=== PATIENT | female | born 1970 | race Caucasian/White ===

== ENCOUNTER 2022-03-24 09:42 | Inpatient (IN) | payer MEDICAID ==
[~2022-03-24] VITALS: Ht 157.5 cm; Wt 85.5 kg
[~2022-03-24 09:42] MED LIST: BENZ1TAB7 PO; FLUO40CA10 PO; LORA1TAB PO; OMEG300C3 PO; PALI6TAB PO; QUET150T2 PO
[2022-03-24 11:09] LABS: BASOPHILS % (AUTO) 0.6 % (0-1); EOSINOPHILS # (AUTO) 0.1 X10'3 (0-0.9); EOSINOPHILS % (AUTO) 1.2 % (0-6); HEMATOCRIT 43.7 % (35.0-45.0); HEMOGLOBIN 14.9 g/dl (12.0-16.0); LYMPHOCYTES # (AUTO) 1.4 X10'3 (1.1-4.8); LYMPHOCYTES % (AUTO) 17.6 % (21-51); MEAN CORPUSCULAR HGB CONC 34.1 g/dL (33.0-36.5); MEAN PLATELET VOLUME 8.2 FL (7.4-10.4); MONOCYTES # (AUTO) 0.5 X10'3 (0-0.9); MONOCYTES % (AUTO) 6.1 % (2-12); NEUTROPHILS # (AUTO) 5.8 X10'3 (1.8-7.7); NEUTROPHILS % (AUTO) 74.5 % (42-75); PLATELET COUNT 259 X10'3 (140-440); RED CELL DISTRIBUTION WIDTH 13.3 % (11.5-14.5); WHITE BLOOD COUNT 7.8 X10'3 (4.5-11.0)
[2022-03-24 11:22] LABS: ALANINE AMINOTRANSFERASE 28 U/L (12-78); ALBUMIN 3.6 G/DL (3.4-5.0); ALBUMIN/GLOBULIN RATIO 0.9 (1.1-1.5); ALKALINE PHOSPHATASE 67 IU/L (46-116); ANION GAP 11 (8-16); ASPARTATE AMINO TRANSFERASE 17 U/L (10-37); BILIRUBIN,TOTAL 0.6 MG/DL (0.1-1.0); BLOOD UREA NITROGEN 11 MG/DL (7-18); BUN/CREATININE RATIO 13.3 (6.6-38.0); CALCIUM 8.8 MG/DL (8.5-10.1); CHLORIDE 106 MMOL/L (99-107); CREATININE 0.83 MG/DL (0.40-0.90); GLUCOSE 96 MG/DL (70-104); POTASSIUM 3.9 MMOL/L (3.5-5.1); SODIUM 141 MMOL/L (135-145); TOTAL PROTEIN 7.7 G/DL (6.4-8.2); eGFR 73 ML/MIN
[2022-03-24 11:27] LABS: ETHANOL < 0.010 GM/DL (0.0-0.010)
[2022-03-24] MEDS ORDERED: LIDOcaine 1% W/epiNEPHrine 1:200,000 10ml vial IJ ONE (12:10)
[2022-03-24] MEDS ORDERED: LIDOcaine 1% W/epiNEPHrine 1:100,000 20ml vial SQ ONE (12:15)
--- NOTE | 2022-03-24 12:43 | NUR ---
Tech irrigating pt's wound at bedside. Pt provided water.
[2022-03-24 14:19] LABS: CLARITY,URINE SLIGHTLY CLOUDY (Clear); COLOR,URINE YELLOW (Yellow); GLUCOSE, URINE NEGATIVE (Neg); KETONES,URINE >=80 mg/dl (Neg); LEUKOCYTE ESTERASE ,URINE NEGATIVE (Neg); NITRITES, URINE NEGATIVE (Neg); OCCULT BLOOD,URINE NEGATIVE (Neg); PROTEIN,URINE NEGATIVE (Neg); URINE HCG NEGATIVE (NEG)
[2022-03-24 14:24] LABS: UA COLLECTION TYPE CLN CATCH MIDSTREAM; URINE AMPHETAMINE SCREEN NEGATIVE (Neg); URINE BARBITUATE SCREEN NEGATIVE (Neg); URINE BENZODIAZEPINES SCREEN NEGATIVE (Neg); URINE CANNABINOID SCREEN POSITIVE (Neg); URINE COCAINE SCREEN NEGATIVE (Neg); URINE METHADONE SCREEN NEGATIVE (Neg); URINE OPIATE SCREEN NEGATIVE (Neg); URINE PHENCYCLIDINE SCREEN NEGATIVE (Neg)
[2022-03-24 14:25] LABS: MUCUS STRANDS MANY /LPF (Neg); SQUAMOUS EPITHELIAL CELL,UR MANY /LPF (FEW)
[2022-03-24 14:27] LABS: BACTERIA,URINE FEW /HPF (Neg); RBC,URINE NONE SEEN /HPF (0-2); WBC,URINE 0-4 /HPF (0-4); YEAST FEW /HPF (NEGATIVE)
--- NOTE | 2022-03-24 15:59 | NUR ---
packet faxed to [facility] at [phone] 03/24/22
--- NOTE | 2022-03-24 16:13 | NUR ---
Pts son here requesting that upon DC that pt be released to him. Pt left contact number. Nirav Alvarado:
[2022-03-24] MEDS ORDERED: ESZO3TAB44 PO (20:00)
[2022-03-24] MEDS ORDERED: PALI6TAB6 PO (20:00)
[2022-03-24] MEDS ORDERED: BUSP10TA3 PO (20:00)
[2022-03-24] MEDS ORDERED: CHOL20002 PO (20:00)
[2022-03-24] MEDS ORDERED: BENZ1TAB7 PO (20:00)
[2022-03-24] MEDS ORDERED: ESCI5TAB17 PO (20:00)
[2022-03-24] MEDS: zolpidem 5mg tablet PO PRN (21:08)
[2022-03-24] MEDS: benztropine 1mg tablet PO SCH (21:19)
[2022-03-24] MEDS: busPIRone 5mg tablet PO SCH (21:20)
[2022-03-24] MEDS: PALIPERIDONE 3 MG TAB.ER.24 PO SCH (21:20)
[2022-03-24] MEDS: LORazepam 1 MG tablet PO SCH (21:20)
[2022-03-24] MEDS ORDERED: acetaminophen 325mg tablet PO ONE (22:15)
--- NOTE | 2022-03-24 23:16 | NUR ---
PT. SEEN ITCHING AND PICKING AT WRIST WOUND. ALSO COMPLAINS OF PAIN. CHANGED DRESSING, USED GAUZE AND A WRIST SPLINT TO IMMOBILIZE WRIST AND STOP PICKING/ PAIN.
--- NOTE | 2022-03-25 06:40 | NUR ---
Received patient from ED for Transfer to Bed 22. Received report from MANDO Ramirez, ED. Patient assisted to bed 22 and is resting at this time.
[2022-03-25] MEDS: busPIRone 5mg tablet PO SCH ×2 (08:08→20:06)
[2022-03-25] MEDS: OMEGA-3/DHA/EPA/FISH OIL 1 EACH CAPSULE.DR PO SCH (08:09)
[2022-03-25] MEDS: cholecalciferol (vitamin D3) 1,000 unit (25mcg) tablet PO SCH (08:09)
[2022-03-25] MEDS: ESCITALOPRAM OXALATE 5 MG TABLET PO SCH (08:09)
--- NOTE | 2022-03-25 08:09 | NUR ---
Patient ate breakfast at her bedside. Ate without difficulty using left hand that was in splint. Took all po medications. Patient walking around the department. Atarax given at 0810 for c/o anxiety. Patient eloped out of Bed #22 at 0845. Patient left the ED and was located on the Security Camera on 2nd floor near [facility]. Security and staff members attempting to locate her. Patient was then located on Security Camera in the elevator by the [place] [facility]. Patient was located by RIGOBERTO Shelley and returned back to [facility]. gen Shelley at patient's bedside at this time for line of site.
[2022-03-25] MEDS: hydrOXYzine 25 MG tablet PO PRN (08:10)
[2022-03-25] MEDS ORDERED: acetaminophen 325mg tablet PO PRN ×3 (08:30→14:05)
[2022-03-25] MEDS: benztropine 1mg tablet PO SCH ×2 (08:59→20:06)
--- NOTE | 2022-03-25 13:55 | NUR ---
Staff member here from [facility] to pick this patient up and transport to [facility]. Security here on stand bye. Patient transferred self to a w/c and taken upstairs by RIGOBERTO Frausto at 1355 with Security with patient/staff member.
[2022-03-25] MEDS ORDERED: mag hydrox/Alum hydrox/simeth 30ml oral suspension PO PRN (14:05)
[2022-03-25] MEDS ORDERED: magnesium hydroxide 30ml (MOM) UD suspension PO PRN (14:05)
[2022-03-25 17:16] VITALS: BP 148/91
--- NOTE | 2022-03-25 17:57 | NUR ---
Nursing Admission Note Pt admitted to [facility] at 1350, brought up from [facility]. Pt calm and pleasant and appears depressed. Pt skin check complete and lacerations on wrist with stiches noted. Pt showered and given unit orientation. Pt admitted due to suicide attept of cutting wrists. Pt is seen by [facility] and has been off of most meds for two months. Pt is homeless now and reports leaving her home due to spouse using drugs with others. Pt reports it's been very rough being homeless. Pt +SI. Pt has abnormal mouth and toungue movements which may be R/T medication changes.
[2022-03-25 20:00] VITALS: BP 126/88
[2022-03-25] MEDS: PALIPERIDONE 3 MG TAB.ER.24 PO SCH (20:06)
[2022-03-25] MEDS: LORazepam 1 MG tablet PO SCH (20:06)
--- NOTE | 2022-03-25 23:38 | NUR ---
Nursing Progress Note: Esme Legal hold: 5150 Client on involuntary status for GD Report received from RN with use of SBAR Why are they here: Pt admitted due to suicide attempt of cutting wrists. Pt is seen by [facility] and has been off of most meds for two months. Pt is homeless now and reports leaving her home due to spouse using drugs with others. Pt reports it's been very rough being homeless. Pt +SI. Pt has abnormal mouth and tongue movements which may be R/T medication changes. Assessment What has happened this shift: Received pt pacing the hallway. Pt presents as calm and cooperative. She currently denies SI/+AH states the voices told her to cut her wrist. Pt asking about her medications and what time she would be getting them. Participates in snacks and took all HS medications without issue and retired to bed. S/I, H/I: Denies A/VH: +AH states her voices told her to cut her wrist Sleep: ADL's: Independent Group :NA Were meds taken: Yes Any med S/E: None Mental Status Exam Appearance: Disheveled in green scrubs Eye contact: fair Behavior: Cooperative Speech: Pt has abnormal mouth and tongue movements which may be R/T medication changes. Mood: Flat Affect: Flat Thought process: Thought Content: meeting own needs Cognition: A&O X4 Insight: poor Judgment: poor Interventions PRN's used: None Therapeutic interventions: Maintained a safe and supportive environment, ensured contract for safety, provided clear and simple instruction, provided active listening and positive encouragement, encouraged participation on the unit, and maintained LOS precautions. Restraints/seclusion/emergency medication: N/A Justification of Continued Inpatient Treatment: NILESH Pratt, pt. continues to require a safe and supportive environment and medication adjustments.
[2022-03-26] MEDS: hydrOXYzine 25 MG tablet PO PRN (01:24)
--- NOTE | 2022-03-26 01:26 | NUR ---
Sleeping note: Pt up requesting a snack and juice. Pt requested ativan, 50MG of atarax given.
[2022-03-26 07:32] LABS: CHOL/HDL RATIO 3.3 (0.00-4.99); CHOLESTEROL 129 MG/DL (0-200); HDL CHOLESTEROL 39 MG/DL (35-60); LDL CHOLESTEROL 73 MG/DL (50-100); TRIGLYCERIDES 101 MG/DL (20-135)
[2022-03-26 07:48] LABS: HEMOGLOBIN A1C 5.6 % (4.5-6.2)
[2022-03-26 08:00] VITALS: BP 141/84
[2022-03-26] MEDS: nicotine 21mg patch - 24 hr TD SCH (08:00)
[2022-03-26] MEDS: benztropine 1mg tablet PO SCH ×2 (08:01→20:08)
[2022-03-26] MEDS: cholecalciferol (vitamin D3) 1,000 unit (25mcg) tablet PO SCH (08:01)
[2022-03-26] MEDS: ESCITALOPRAM OXALATE 5 MG TABLET PO SCH (08:01)
[2022-03-26] MEDS: busPIRone 5mg tablet PO SCH ×2 (08:01→20:08)
[2022-03-26] MEDS: OMEGA-3/DHA/EPA/FISH OIL 1 EACH CAPSULE.DR PO SCH (08:01)
--- NOTE | 2022-03-26 10:13 | NUR ---
Pt. attended group today. At the beginning of group we talked about Core Beliefs and they each identified one negative. We worked toward finding evidence to contradict this belief. In the second half of the group we did an Art Expressions where they what was inside of their hearts. They were to visualize in colors and shapes and then color their heart in. Then they completed a Sentence Completion about what their heart thinks and feels. Pt. engaged in the group appropriately. Her demeanor was calm, compliant and pleasant to work with. She spoke minimally with short concise answers when asked a question. She colored her heart and did the written activity. She shared these with the group. Guillermina Samson, SUPERINTENDENT OPERATIONS DIVISION
--- NOTE | 2022-03-26 17:27 | NUR ---
Nursing Progress Note: Esme Legal hold: 5150 Client on involuntary status for GD Report received from MANDO Candelaria with use of SBAR Why are they here: Pt admitted due to suicide attempt of cutting wrists. Pt is seen by [facility] and has been off of most meds for two months. Pt is homeless now and reports leaving her home due to spouse using drugs with others. Pt reports it's been very rough being homeless. Pt +SI. Pt has abnormal mouth and tongue movements which may be R/T medication changes. Assessment What has happened this shift: Patient received sleeping in bed at change of shift. She joined with peers in the group room for breakfast this morning. Patient was receptive to scheduled medication. She is noted to be pleasant, reserved, and cooperative with care. Patient was noted sitting in the group room socializing with peers for part of the morning. She retreated back to her room for 1:1 assessment, lungs CTA. Patient denies SI/HI, AH or VH. Does not appear to be responding to internal stimuli. She was observed participating in group therapy today, noted interacting and engaging appropriately. Patient continues to present with abnormal mouth and tongue movements, MD aware. Patient observed lying down in her room quietly resting. She endorsed to this engineering technical writer that she is feeling depressed about being in here. Patient provided with ideas for diversional activities which she declined to partake in. She was observed to be isolative and reserved throughout the day. Noted only responding to direct questions when asked. She was observed napping intermittently throughout the shift. Patient joined for snack and meal times in the group room with peers. S/I, H/I: Denies A/VH: Denies. Does not appear to be responding to IS. Sleep: Pt slept 7.5 hours last night per NOC shift. Napped intermittently on this shift. ADL's: Independent Group: Yes Were meds taken: Yes Any med S/E: None observed or reported Mental Status Exam Appearance: Disheveled in green scrubs, black wrist splint on left wrist Eye contact: Fair Behavior: Cooperative, pleasant, reserved Speech: Pt has abnormal mouth and tongue movements which may be R/T medication changes. Mood: Flat, feeling depressed Affect: Congruent with mood Thought process: Linear Thought Content: Meeting needs, feeling depressed Cognition: A&O X4 Insight: Poor Judgment: Poor Interventions PRN's used: None Therapeutic interventions: Maintained a safe and supportive environment, ensured contract for safety, provided clear and simple instruction, provided active listening and positive encouragement, encouraged participation on the unit, and maintained Q15 min safety checks. Restraints/seclusion/emergency medication: N/A Justification of Continued Inpatient Treatment: Patient continues to require a safe and supportive environment and medication adjustments/monitoring.
[2022-03-26 19:46] VITALS: BP 109/71
[2022-03-26] MEDS: PALIPERIDONE 3 MG TAB.ER.24 PO SCH (20:08)
[2022-03-26] MEDS: LORazepam 1 MG tablet PO SCH (20:08)
--- NOTE | 2022-03-27 01:26 | NUR ---
Nursing Progress Note: Esme Legal hold: 5150 Client on involuntary status for GD Report received from Viry GILMORE with use of SBAR Why are they here: Pt admitted due to suicide attempt of cutting wrists. Pt is seen by [facility] and has been off of most meds for two months. Pt is homeless now and reports leaving her home due to spouse using drugs with others. Pt reports it's been very rough being homeless. Pt +SI. Pt has abnormal mouth and tongue movements which may be R/T medication changes. Assessment What has happened this shift: Patient received sleeping lying in bed resting. Pt stated she was concerned that she was going to get locked up somewhere far, far away. When questioned why she felt that way she could not give this personal lines underwriter a reason. She stated that she wanted to go live with her son. She is noted to be pleasant, reserved, and cooperative with care. Pt up to the community room for snacks and took all HS medications without issue then went to her room for bedtime. S/I, H/I: Denies A/VH: Denies. Does not appear to be responding to IS. Sleep: ADL's: Independent Group: Yes Were meds taken: Yes Any med S/E: None observed or reported Mental Status Exam Appearance: Disheveled in green scrubs, black wrist splint on left wrist Eye contact: Fair Behavior: Cooperative, pleasant, reserved Speech: Pt has abnormal mouth and tongue movements which may be R/T medication changes. Mood: Flat, feeling depressed Affect: Congruent with mood Thought process: Linear Thought Content: Meeting needs, feeling depressed Cognition: A&O X4 Insight: Poor Judgment: Poor Interventions PRN's used: None Therapeutic interventions: Maintained a safe and supportive environment, ensured contract for safety, provided clear and simple instruction, provided active listening and positive encouragement, encouraged participation on the unit, and maintained Q15 min safety checks. Restraints/seclusion/emergency medication: N/A Justification of Continued Inpatient Treatment: Patient continues to require a safe and supportive environment and medication adjustments/monitoring.
[2022-03-27 07:33] VITALS: BP 151/94
[2022-03-27] MEDS: nicotine 21mg patch - 24 hr TD SCH (08:00)
[2022-03-27] MEDS: OMEGA-3/DHA/EPA/FISH OIL 1 EACH CAPSULE.DR PO SCH (08:06)
[2022-03-27] MEDS: ESCITALOPRAM OXALATE 5 MG TABLET PO SCH (08:06)
[2022-03-27] MEDS: benztropine 1mg tablet PO SCH ×2 (08:06→20:11)
[2022-03-27] MEDS: busPIRone 5mg tablet PO SCH ×2 (08:06→20:11)
[2022-03-27] MEDS: cholecalciferol (vitamin D3) 1,000 unit (25mcg) tablet PO SCH (08:06)
--- NOTE | 2022-03-27 16:58 | NUR ---
Nursing Progress Note: Esme Legal hold: 5150 Client on involuntary status for GD Report received from MANDO Candelaria with use of SBAR Why are they here: Pt admitted due to suicide attempt of cutting wrists. Pt is seen by [facility] and has been off of most meds for two months. Pt is homeless now and reports leaving her home due to spouse using drugs with others. Pt reports it's been very rough being homeless. Pt +SI. Pt has abnormal mouth and tongue movements which may be R/T medication changes. Assessment What has happened this shift: Patient received sleeping in her room at shift change. She was receptive to scheduled medication. Patient continues to present with abnormal mouth and tongue movements, MD aware. Patient observed sitting with another peer in the group room while eating breakfast. She continues to present as pleasant, reserved, and cooperative with care. She isolated back to her room after breakfast, noted lying down in bed. Patient endorsed that she is feeling depressed about having to leave soon and she doesnt know where she is going to go. Patient endorsed that she wishes to live with her son but doesnt know if that is an option. She denies SI/HI, AH or VH. Does not appear to be responding to internal stimuli. Patient endorsed that she came here because she was suicidal. Patient endorsed that she does not want to hurt herself and is no longer having suicidal thoughts. She was noted napping intermittently throughout the shift. Patient was reserved and isolative to her room throughout the day. She joined for snack and meal times in the group room with peers. S/I, H/I: Denies A/VH: Denies. Does not appear to be responding to IS. Sleep: Pt slept 8.5 hours last night per NOC shift. Napped intermittently on this shift. ADL's: Independent Group: N/A Were meds taken: Yes Any med S/E: None observed or reported Mental Status Exam Appearance: Disheveled from lying in bed. Wearing green unit scrubs, black wrist splint on left wrist Eye contact: Fair Behavior: Cooperative, pleasant, reserved Speech: Pt has abnormal mouth and tongue movements which may be R/T medication changes. Mood: Flat, feeling depressed Affect: Congruent with mood Thought process: Linear Thought Content: Meeting needs. Feeling depressed and worried about discharge. Cognition: A&O X4 Insight: Poor Judgment: Poor Interventions PRN's used: None Therapeutic interventions: Maintained a safe and supportive environment, ensured contract for safety, provided clear and simple instruction, provided active listening and positive encouragement, encouraged participation on the unit, and maintained Q15 min safety checks. Restraints/seclusion/emergency medication: N/A Justification of Continued Inpatient Treatment: Patient continues to require a safe and supportive environment and medication adjustments/monitoring.
[2022-03-27 19:00] VITALS: BP 126/57
[2022-03-27] MEDS: hydrOXYzine 25 MG tablet PO PRN ×2 (19:06→19:17)
[2022-03-27] MEDS: LORazepam 1 MG tablet PO SCH (20:11)
[2022-03-27] MEDS ORDERED: PALIPERIDONE 3 MG TAB.ER.24 PO SCH (21:00)
[2022-03-28] MEDS: zolpidem 5mg tablet PO PRN (00:12)
--- NOTE | 2022-03-28 01:00 | NUR ---
Sleeping note: Pt up at around midnight, 5MG of ambien given.
--- NOTE | 2022-03-28 01:15 | NUR ---
Nursing Progress Note: Esme Legal hold: 5150 Client on involuntary status for GD Report received from Padma GILMORE with use of SBAR Why are they here: Pt admitted due to suicide attempt of cutting wrists. Pt is seen by [facility] and has been off of most meds for two months. Pt is homeless now and reports leaving her home due to spouse using drugs with others. Pt reports it's been very rough being homeless. Pt +SI. Pt has abnormal mouth and tongue movements which may be R/T medication changes. Assessment What has happened this shift: Patient received lying in bed resting. Pt stated she feels very depressed 8/10 about leaving soon and doesnt know where is going to go. Pt requested something for anxiety, received 50MG of atarax. Denies SI/HI and VH. Does not appear to be responding to internal stimuli. Patient continues to present with abnormal mouth and tongue movements, MD aware. Pt participates in the community room for snacks and took all HS medications without issue. Pt retired to bed shortly after med pass. Therapeutic interventions: Maintained a safe and supportive environment, ensured contract for safety, provided clear and simple instruction, provided active listening and positive encouragement, encouraged participation on the unit, and maintained Q15 min safety checks. Restraints/seclusion/emergency medication: N/A Justification of Continued Inpatient Treatment: Patient continues to require a safe and supportive environment and medication adjustments/monitoring.
[2022-03-28] MEDS: nicotine 21mg patch - 24 hr TD SCH (08:00)
[2022-03-28] MEDS: cholecalciferol (vitamin D3) 1,000 unit (25mcg) tablet PO SCH (08:04)
[2022-03-28] MEDS: busPIRone 5mg tablet PO SCH (08:04)
[2022-03-28] MEDS: ESCITALOPRAM OXALATE 5 MG TABLET PO SCH (08:04)
[2022-03-28] MEDS: OMEGA-3/DHA/EPA/FISH OIL 1 EACH CAPSULE.DR PO SCH (08:04)
[2022-03-28] MEDS: benztropine 1mg tablet PO SCH (08:04)
[2022-03-28] MEDS ORDERED: ESCI5TAB PO (08:05)
[2022-03-28] MEDS ORDERED: BENZ1TAB90 PO (08:05)
[2022-03-28] MEDS ORDERED: BUSP5TAB26 PO (08:05)
[2022-03-28] MEDS ORDERED: PALI3TAB5 PO (08:05)
[2022-03-28] MEDS ORDERED: NICO-687 TD (08:05)
[2022-03-28 08:58] VITALS: BP 130/82
--- NOTE | 2022-03-28 09:38 | NUR ---
Initial: Pt admit for depression with SI, currently with a laceration to left wrist which is sutured per EMR. Pt on a regular diet and eating well with mostly 75-100% PO intake of meals and is participating in snacks per panama hat hydraulic press operator. Overall pt meeting estimated nutrient needs. [facility] 03/27. No nutrition intervention implemented at this time. Will continue to follow. Recommendations: 1) Continue regular diet 2) Bowel care PRN 3) Weekly scaled weights Addendum: 03/28/22 at [address] Amended: Links added.
== END 2022-03-28 12:00 | disposition home or self-care (01) | DRG 751 ==
LOC: ER 09:43 → ED HOLD 03-25 11:45 → ADULT MH 03-25 13:52
PROVIDERS: ADMIT Psychiatry & Neurology Psychiatry; ATTEND Psychiatry & Neurology Psychiatry
PROC: 0HQEXZZ Repair Left Lower Arm Skin, External Approach (ICD-10-PCS; principal; 2022-03-24)
DX: F33.2 Major depressive disorder, recurrent severe without psychotic features (principal); F15.90 Other stimulant use, unspecified, uncomplicated; S61.512A Laceration without foreign body of left wrist, initial encounter; T14.91XA Suicide attempt, initial encounter; Z20.822 Contact with and (suspected) exposure to COVID-19; F20.9 Schizophrenia, unspecified; G24.01 Drug induced subacute dyskinesia; X78.9XXA Intentional self-harm by unspecified sharp object, initial encounter; Z59.00 Homelessness unspecified; Y92.89 Other specified places as the place of occurrence of the external cause; Z98.891 History of uterine scar from previous surgery
CPT/HCPCS: 36415; 80053; 80061; 80305; 80320; 81001; 81025; 83036; 84443; 85025; 87081; 87635; 99285; C9803; Q0177

== ENCOUNTER 2022-04-18 14:52 | Inpatient (IN) | payer MEDICAID ==
[~2022-04-18] VITALS: Ht 154.9 cm; Wt 87.5 kg
[~2022-04-18 14:52] MED LIST changes: -BENZ1TAB7 PO; +BENZ1TAB90 PO; +BUSP5TAB26 PO; +CHOL20002 PO; +ESCI5TAB PO; -FLUO40CA10 PO; +NICO-687 TD; +PALI3TAB5 PO; -PALI6TAB PO; -QUET150T2 PO; +rocuronium 10mg/ml inj IV ONE
[2022-04-18 15:10] VITALS: BP 146/98
[2022-04-18] MEDS ORDERED: fentaNYL/PF 50MCG/1 ML 2ML syringe IV PRN (15:10)
[2022-04-18] MEDS ORDERED: rocuronium 10mg/ml inj IV ONE (15:10)
[2022-04-18] MEDS ORDERED: normal saline 1000ml 1,000 ML IV ONE (15:10)
[2022-04-18] MEDS ORDERED: etomidate 2mg/ml inj. IV ONE (15:10)
[2022-04-18] MEDS ORDERED: pantoprazole IV 80 MG in normal saline 100ml IV soln 100 ML IV ONE (15:10)
[2022-04-18] MEDS ORDERED: FENTANYL-0.9 % NACL/PF 100 ML IV SCH (15:10)
[2022-04-18] MEDS ORDERED: midazolam 100mg in NS 100ml 100 ML IV PRN (15:10)
[2022-04-18] MEDS ORDERED: magnesium 2GM in 50ml NS 50 ML IV ONE (15:20)
--- NOTE | 2022-04-18 15:21 | NUR ---
POISON CONTROL CALLED FOR OD OF KLONOPIN 0.5MG, 90 TABLETS. LAST FILLED ON 04/09/22 PT WILL HAVE TECHNICAL EDITOR DEPRESSION RECOMMENDATIONS: INTUBATION LABS: CBC, CMP, ASA/TYLENOL LEVELS, DRUG SCREEN AND CK TREAT SUPPORTIVELY, NO REVERSALS OR ANTIDOTES RECOMMENDED AT THIS TIME. DR PEGUERO AND PT RN NOTIFIED
[2022-04-18 15:38] LABS: URINE HCG NEGATIVE (NEG)
[2022-04-18 15:47] LABS: BASOPHILS % (AUTO) 0.6 % (0-1); EOSINOPHILS # (AUTO) 0.2 X10'3 (0-0.9); EOSINOPHILS % (AUTO) 3.1 % (0-6); HEMATOCRIT 32.5 % (35.0-45.0); HEMOGLOBIN 10.6 g/dl (12.0-16.0); LYMPHOCYTES # (AUTO) 1.7 X10'3 (1.1-4.8); LYMPHOCYTES % (AUTO) 28.7 % (21-51); MEAN CORPUSCULAR HGB CONC 32.7 g/dL (33.0-36.5); MEAN CORPUSCULAR VOLUME 91.7 FL (78-98); MEAN PLATELET VOLUME 7.7 FL (7.4-10.4); MONOCYTES # (AUTO) 0.4 X10'3 (0-0.9); MONOCYTES % (AUTO) 6.5 % (2-12); NEUTROPHILS # (AUTO) 3.7 X10'3 (1.8-7.7); NEUTROPHILS % (AUTO) 61.1 % (42-75); PLATELET COUNT 227 X10'3 (140-440); RED BLOOD COUNT 3.54 X10'6 (4.20-5.60); RED CELL DISTRIBUTION WIDTH 13.1 % (11.5-14.5)
[2022-04-18 15:58] LABS: CLARITY,URINE CLEAR (Clear); COLOR,URINE YELLOW (Yellow); GLUCOSE, URINE NEGATIVE (Neg); KETONES,URINE NEGATIVE (Neg); LEUKOCYTE ESTERASE ,URINE NEGATIVE (Neg); NITRITES, URINE NEGATIVE (Neg); OCCULT BLOOD,URINE TRACE-INTACT (Neg); PROTEIN,URINE NEGATIVE (Neg); UROBILINOGEN,URINE 0.2 E.U/dL (0.2-1.0)
[2022-04-18 16:01] LABS: UA COLLECTION TYPE FOLEY CATH
[2022-04-18 16:03] LABS: MUCUS STRANDS FEW /LPF (Neg); RBC,URINE 0-2 /HPF (0-2); SQUAMOUS EPITHELIAL CELL,UR MODERATE /LPF (FEW); WBC,URINE 0-4 /HPF (0-4)
[2022-04-18 16:04] LABS: BACTERIA,URINE 1+ /HPF (Neg)
[2022-04-18 16:07] LABS: ALANINE AMINOTRANSFERASE 6 U/L (12-78); ALBUMIN 1.9 G/DL (3.4-5.0); ALBUMIN/GLOBULIN RATIO 0.8 (1.1-1.5); ALKALINE PHOSPHATASE 46 IU/L (46-116); ASPARTATE AMINO TRANSFERASE 7 U/L (10-37); BILIRUBIN,TOTAL 0.2 MG/DL (0.1-1.0); BLOOD UREA NITROGEN 7 MG/DL (7-18); BUN/CREATININE RATIO 14.3 (6.6-38.0); CREATINE KINASE 24 U/L (26-192); CREATININE 0.49 MG/DL (0.40-0.90); GLUCOSE 77 MG/DL (70-104); MAGNESIUM 1.3 MG/DL (1.5-2.4); TOTAL CARBON DIOXIDE 21.4 MMOL/L (24-32); TOTAL PROTEIN 4.3 G/DL (6.4-8.2); eGFR > 90 ML/MIN
[2022-04-18 16:15] LABS: ANION GAP 8 (8-16); CHLORIDE 117 MMOL/L (99-107); SODIUM 146 MMOL/L (135-145)
[2022-04-18 16:17] LABS: ETHANOL < 0.010 GM/DL (0.0-0.010)
[2022-04-18 16:18] LABS: URINE AMPHETAMINE SCREEN NEGATIVE (Neg); URINE BARBITUATE SCREEN NEGATIVE (Neg); URINE BENZODIAZEPINES SCREEN NEGATIVE (Neg); URINE CANNABINOID SCREEN POSITIVE (Neg); URINE COCAINE SCREEN NEGATIVE (Neg); URINE METHADONE SCREEN NEGATIVE (Neg); URINE OPIATE SCREEN NEGATIVE (Neg); URINE PHENCYCLIDINE SCREEN NEGATIVE (Neg)
[2022-04-18 16:20] LABS: CALCIUM 5.5 MG/DL (8.5-10.1); POTASSIUM 2.7 MMOL/L (3.5-5.1)
[2022-04-18 16:27] LABS: ABG BASE EXCESS -1.8 mmol/L (-2.0-2.0); ABG HCO3 22.6 mmol/L (22.0-26.0); ABG OXYGEN SATURATION 99.3 % (94-97); ABG PCO2 (T) 37.3 mmHg (32.0-45.0); ABG PO2 (T) 452.8 mmHg (75.0-100.0); ALLEN'S TEST POSITIVE; FCOHb 0.3 % (0.0-3.9); FMetHb 0.1 % (0.0-1.5); FO2Hb 98.9 % (94-97); PATIENT TEMPERATURE 36.7; PEEP 5 cm H2O; RESPIRATORY RATE 18 b/min; TIDAL VOLUME 460 mL; TOTAL HEMOGLOBIN 14.8 G/dl (12.0-16.0)
[2022-04-18] MEDS ORDERED: potassium Cl 10 mEq/100mL bag IV ONE (16:30)
[2022-04-18] MEDS ORDERED: calcium gluconate inj. 2 GM in normal saline 100ml IV soln 100 ML IV ONE (16:35)
--- NOTE | 2022-04-18 16:49 | NUR ---
PT'S DAUGHTER TURNER CALLED FOR STATUS UPDATE. INFORMED THAT I COULD NOT GIVE INFORMATION OVER THE PHONE AT THIS TIME. DAUGHTER STATES THAT SHE HAS A POWER OF REGIONAL SAFETY MANAGER FOR HEALTH CARE AND SHE WILL BRING A COPY OF THE DOCUMANT FOR PT'S CHART. DAUGHTER WAS INFORMED THAT HER BROTHER WAS HERE AND AN UPDATE WAS GIVEN TO HIM AND SHE CAN CONTACT HIM NEEDED. DAUGHTER REQUESTED THAT PT NOT BE RELEASED TO HER BROTHER AND TO CALL HER WITH ANY UPDATES AND DISCHARGE INFORMATION. DAUGHTERS PHONE # IS IN PT'S RECORD NOK. Addendum: 04/18/22 at 1812 by ADALID DAUGHTER, TURNER HAIDER; PHONE # [phone]
[2022-04-18 16:55] LABS: PHOSPHORUS 3.5 MG/DL (2.3-4.5)
--- NOTE | 2022-04-18 17:30 | NUR ---
OH PEGUERO AT BEDSIDE PLACING CENTRAL LINE. INCREASE IN INFUSION RATE OF SEDATION WELL 4MG BOLUS OF VERSED PERFORMED PER MD REQUEST.
[2022-04-18] MEDS: pantoprazole 40MG/NS 100ML BAG 100 ML IV SCH ×2 (17:53→18:12)
[2022-04-18 18:10] LABS: RED BLOOD COUNT 4.44 X10'6 (4.20-5.60); RETICULOCYTE % (AUTO) 0.8 % (0.5-1.5)
[2022-04-18] MEDS ORDERED: POTASSIUM BICARB 20meq eff tab 20 MEQ TABLET.EFF PO PRN ×2 (18:10)
[2022-04-18] MEDS ORDERED: acetaminophen 325mg tablet PO PRN ×2 (18:10)
[2022-04-18] MEDS ORDERED: morphine 4 MG/ML inj SYRINge IV PRN (18:10)
[2022-04-18] MEDS ORDERED: morphine 2 MG/ML inj. syringe IV PRN (18:10)
[2022-04-18] MEDS ORDERED: LIDOcaine 2% 10ml TOPICAL JELLY (Urojet) TP ONE (18:10)
[2022-04-18] MEDS ORDERED: ondansetron/PF 4mg/2ml inj IV PRN (18:10)
[2022-04-18] MEDS ORDERED: magnesium hydroxide 30ml (MOM) UD suspension PO PRN (18:10)
--- NOTE | 2022-04-18 18:29 | NUR ---
LATISHA (SISTER) [phone] PLEASE CONTACT WITH UPDATES WHEN ABLE
[2022-04-18 18:32] LABS: % IRON SATURATION 36 % (11-46); IRON 109 UG/DL (49-151); TOTAL IRON BINDING CAPACITY 302 UG/DL (259-388)
[2022-04-18 18:38] LABS: FERRITIN 43 NG/ML (8-252)
[2022-04-18 19:17] VITALS: BP 120/85
[2022-04-18] MEDS: K and/or MAG REPLACEMENT MC SCH (20:00)
[2022-04-18 21:03] VITALS: BP 147/96
[2022-04-18 22:00] VITALS: BP 122/75
--- NOTE | 2022-04-18 22:00 | NUR ---
Patient in room CICU 2009. I have received report from MANDO Wells and had the opportunity to ask questions and assume patient care.
[2022-04-18] MEDS ORDERED: dextrose 50%-water 50ml dispensing syringe IV ONE (22:21)
--- NOTE | 2022-04-18 22:30 | NUR ---
Called Dr. Berger and notified him of her blood sugar. When she came to the ED she had a blood sugar of 77. Rechecked at 2100 and was at 91. Recheck blood sugar [facility] and her blood sugar was 84. ordered 1 amp of dextrose 50% to be given.
[2022-04-18 22:42] VITALS: BP 108/59
[2022-04-18 23:00] VITALS: BP 99/63
[2022-04-18 23:05] LABS: OXYGEN SATURATION (MIXED VEN) 70.5 % (60-80); PO2 MIXED VENOUS (TEMP COR) 38.3 mmHg (35-46)
[2022-04-19] VITALS (32 sets, daily range): BP systolic 83–143; BP diastolic 50–87
--- NOTE | 2022-04-19 01:00 | NUR ---
Called Dr. Berger to notify him of pt's systolic bp in the 80's and maintaining a map in the low 60's. Pt's urine is also decreasin: 30ml, 0000: 23ml, 0100: 10ml. ordered albumin 250mls to be administered. will continue to moniter.
[2022-04-19] MEDS ORDERED: albumin (Human) 5% 250ml 250 ML IV ONE ×2 (01:20→01:23)
--- NOTE | 2022-04-19 02:00 | NUR ---
Called Dr. Berger to notify him of pt's blood sugar of 77. ordered D5W rate of 100mls/hr.
[2022-04-19] MEDS: dextrose 5%-water 1,000 ML IV SCH ×2 (02:40→12:40)
[2022-04-19 03:04] LABS: ALANINE AMINOTRANSFERASE 12 U/L (12-78); ALBUMIN 2.9 G/DL (3.4-5.0); ALBUMIN/GLOBULIN RATIO 0.9 (1.1-1.5); ALKALINE PHOSPHATASE 61 IU/L (46-116); ANION GAP 6 (8-16); ASPARTATE AMINO TRANSFERASE 9 U/L (10-37); BILIRUBIN,TOTAL 0.7 MG/DL (0.1-1.0); BLOOD UREA NITROGEN 11 MG/DL (7-18); BUN/CREATININE RATIO 12.9 (6.6-38.0); CALCIUM 8.3 MG/DL (8.5-10.1); CHLORIDE 108 MMOL/L (99-107); CREATININE 0.85 MG/DL (0.40-0.90); GLUCOSE 81 MG/DL (70-104); POTASSIUM 3.4 MMOL/L (3.5-5.1); SODIUM 142 MMOL/L (135-145); TOTAL CARBON DIOXIDE 27.9 MMOL/L (24-32); eGFR 71 ML/MIN
[2022-04-19 03:07] LABS: BASOPHILS # (AUTO) 0.1 X10'3 (0-0.2); BASOPHILS % (AUTO) 0.7 % (0-1); EOSINOPHILS # (AUTO) 0.1 X10'3 (0-0.9); EOSINOPHILS % (AUTO) 1.3 % (0-6); HEMATOCRIT 35.9 % (35.0-45.0); HEMOGLOBIN 12.1 g/dl (12.0-16.0); LYMPHOCYTES # (AUTO) 2.2 X10'3 (1.1-4.8); LYMPHOCYTES % (AUTO) 20.1 % (21-51); MEAN CORPUSCULAR HEMOGLOBIN 30.1 PG (27.0-31.0); MEAN CORPUSCULAR HGB CONC 33.7 g/dL (33.0-36.5); MEAN CORPUSCULAR VOLUME 89.3 FL (78-98); MEAN PLATELET VOLUME 8.2 FL (7.4-10.4); MONOCYTES # (AUTO) 0.8 X10'3 (0-0.9); NEUTROPHILS # (AUTO) 7.7 X10'3 (1.8-7.7); NEUTROPHILS % (AUTO) 70.9 % (42-75); PLATELET COUNT 262 X10'3 (140-440); RED BLOOD COUNT 4.02 X10'6 (4.20-5.60); WHITE BLOOD COUNT 10.8 X10'3 (4.5-11.0)
[2022-04-19 03:07] LABS: ABG BASE EXCESS 0.1 mmol/L (-2.0-2.0); ABG HCO3 21.9 mmol/L (22.0-26.0); ABG PCO2 (T) 28.7 mmHg (32.0-45.0); ABG PO2 (T) 108.1 mmHg (75.0-100.0); ALLEN'S TEST Modified; FCOHb 0.1 % (0.0-3.9); FMetHb 0.2 % (0.0-1.5); FO2Hb 97.7 % (94-97); PEEP 5 cm H2O; RESPIRATORY RATE 18 b/min; TIDAL VOLUME 450 mL
[2022-04-19 03:07] LABS: ACETAMINOPHEN < 2.0 UG/ML (10-30); MAGNESIUM 1.9 MG/DL (1.5-2.4)
[2022-04-19] MEDS ORDERED: ringers solution, lacted 1,000 ML IV ONE (04:40)
--- NOTE | 2022-04-19 06:17 | NUR ---
Problems reprioritized. Patient report given, questions answered & plan of care reviewed with MANDO chowdary.
[2022-04-19] MEDS ORDERED: pantoprazole 40mg Tablet.DR PO SCH ×2 (07:30)
[2022-04-19] MEDS ORDERED: caffeine citrate injection 80 MG in dextrose 5%-water 50ml 50 ML IV ONE ×2 (08:00→13:45)
[2022-04-19] MEDS: CefTRIAXone 2gm/NS 100ml IVPB 100 ML IV SCH (08:12)
[2022-04-19] MEDS: enoxaparin 40mg/0.4ml syringe SUBCUT SCH (08:12)
[2022-04-19] MEDS ORDERED: acetaZOLAMIDE IV 500mg inj IV ONE (09:40)
[2022-04-19] MEDS ORDERED: flumazenil 0.1 mg/ml inj. IV ONE (09:45)
[2022-04-19] MEDS ORDERED: fentaNYL/PF 50MCG/1 ML 2ML syringe ONE ×2 (10:44→14:28)
[2022-04-19] MEDS ORDERED: flumazenil 0.1 mg/ml inj. IV PRN (11:25)
[2022-04-19] MEDS ORDERED: acetaminophen 325mg/10.15ml oral unit dose solution OGT PRN ×2 (11:29)
[2022-04-19] MEDS ORDERED: POTASSIUM BICARB 20meq eff tab 20 MEQ TABLET.EFF OGT PRN ×2 (11:29→11:30)
[2022-04-19] MEDS ORDERED: magnesium hydroxide 30ml (MOM) UD suspension OGT PRN (11:29)
--- NOTE | 2022-04-19 11:39 | NUR ---
Initial: Pt intubated admit DX OD, schizophrenia, possible SI, anxiety, depression, and possible aspiration PNA per EMR/MD at rounds. OG in place w/ MAP 90 this AM per EMR. Pt pending EGD then possible extubation as soon as able per reimbursement representative at rounds. Pt receiving D5W at 100ml/hr providing 408 kcals/day per EMR. TF recs below in case prolonged intubation. LBM 04/18. Will monitor for nutrition intervention needs this admit. Rec: 1. IF TF; Vital HP at 60ml/hr 2. IF TF; additional water flush 100ml Q4H 3. upon extubation; advance diet as medically indicated to regular 4. routine bowel care 5. scaled wt this admit; subsequent weekly wts Addendum: 04/19/22 at [address] Amended: Links added.
[2022-04-19] MEDS ORDERED: MIDAZolam 1 MG/ML 5ML VIAL ONE (14:28)
[2022-04-19 14:44] LABS: ANION GAP 8 (8-16); BLOOD UREA NITROGEN 9 MG/DL (7-18); BUN/CREATININE RATIO 11.7 (6.6-38.0); CALCIUM 8.5 MG/DL (8.5-10.1); CHLORIDE 107 MMOL/L (99-107); CREATININE 0.77 MG/DL (0.40-0.90); GLUCOSE 111 MG/DL (70-104); MAGNESIUM 1.8 MG/DL (1.5-2.4); POTASSIUM 3.5 MMOL/L (3.5-5.1); SODIUM 139 MMOL/L (135-145); TOTAL CARBON DIOXIDE 24.4 MMOL/L (24-32); eGFR 80 ML/MIN
[2022-04-19] MEDS ORDERED: potassium Cl 20mEq/100mL bag 100 ML IV ONE (16:20)
[2022-04-19 16:55] LABS: PHOSPHORUS 3.9 MG/DL (2.3-4.5)
--- NOTE | 2022-04-19 18:00 | NUR ---
pt in bed. Restless. Trying to climb out of bed. Not reorientable. Not oriented to place, time or event. Cardio: NSR with HR 70-80s. BP: see JAN. Resp: bilat lungs are clear and diminished at the bases. Strider noted. O2 saturation 96% on 3L NC. Pt is not on any drips at this time.
--- NOTE | 2022-04-19 18:20 | NUR ---
Dr Mary Carmen malone at bedside. Discussed the situation about the central line. Order to remove in the AM. Only use in event of acute situation. Will continue to monitor.
[2022-04-19] MEDS: methylPREDNISolone sod succ 125mg/2ml vial IV SCH (18:33)
[2022-04-19] MEDS ORDERED: POTA10TA PO (19:13)
[2022-04-19] MEDS ORDERED: CLON-368 PO (19:13)
[2022-04-19] MEDS ORDERED: FURO20TA4 PO (19:13)
[2022-04-19] MEDS ORDERED: VALB40CA2 PO (19:13)
[2022-04-19] MEDS ORDERED: ATOR10TA70 PO (19:13)
[2022-04-19] MEDS ORDERED: BUSP10TA3 PO (19:13)
[2022-04-19] MEDS ORDERED: enoxaparin 40mg/0.4ml syringe SUBCUT SCH (20:00)
[2022-04-20] VITALS (28 sets, daily range): BP systolic 90–124; BP diastolic 47–89
[2022-04-20 03:03] LABS: BASOPHILS % (AUTO) 0 % (0-1); EOSINOPHILS % (AUTO) 0 % (0-6); HEMATOCRIT 40.6 % (35.0-45.0); HEMOGLOBIN 13.4 g/dl (12.0-16.0); LYMPHOCYTES # (AUTO) 0.6 X10'3 (1.1-4.8); MEAN CORPUSCULAR HEMOGLOBIN 29.8 PG (27.0-31.0); MEAN CORPUSCULAR HGB CONC 33.1 g/dL (33.0-36.5); MEAN CORPUSCULAR VOLUME 90.1 FL (78-98); MEAN PLATELET VOLUME 8.6 FL (7.4-10.4); MONOCYTES # (AUTO) 0.1 X10'3 (0-0.9); MONOCYTES % (AUTO) 0.8 % (2-12); NEUTROPHILS # (AUTO) 13.6 X10'3 (1.8-7.7); NEUTROPHILS % (AUTO) 95.2 % (42-75); PLATELET COUNT 290 X10'3 (140-440); RED CELL DISTRIBUTION WIDTH 13.2 % (11.5-14.5); WHITE BLOOD COUNT 14.3 X10'3 (4.5-11.0)
[2022-04-20 03:18] LABS: ALANINE AMINOTRANSFERASE 12 U/L (12-78); ALBUMIN 3.4 G/DL (3.4-5.0); ALBUMIN/GLOBULIN RATIO 0.8 (1.1-1.5); ALKALINE PHOSPHATASE 71 IU/L (46-116); ANION GAP 10 (8-16); ASPARTATE AMINO TRANSFERASE 19 U/L (10-37); BILIRUBIN,TOTAL 0.4 MG/DL (0.1-1.0); BLOOD UREA NITROGEN 10 MG/DL (7-18); CALCIUM 9.4 MG/DL (8.5-10.1); CHLORIDE 108 MMOL/L (99-107); CREATININE 0.91 MG/DL (0.40-0.90); GLUCOSE 155 MG/DL (70-104); MAGNESIUM 2.1 MG/DL (1.5-2.4); POTASSIUM 3.8 MMOL/L (3.5-5.1); SODIUM 139 MMOL/L (135-145); TOTAL CARBON DIOXIDE 21.3 MMOL/L (24-32); TOTAL PROTEIN 7.5 G/DL (6.4-8.2); eGFR 66 ML/MIN
[2022-04-20] MEDS: K and/or MAG REPLACEMENT MC SCH (08:00)
[2022-04-20] MEDS: CefTRIAXone 2gm/NS 100ml IVPB 100 ML IV SCH (08:31)
[2022-04-20] MEDS: enoxaparin 40mg/0.4ml syringe SUBCUT SCH (08:32)
[2022-04-20] MEDS: lansoprazole 15mg solutab OGT SCH (08:33)
--- NOTE | 2022-04-20 08:44 | NUR ---
pt awakened upon assessment. questioned her about wether or not she hurt herself or not. she stated yes informed
--- NOTE | 2022-04-20 13:02 | NUR ---
RECEIVED REPORT FROM MANDO CAI. ASSUMED CARE OF PT.
[2022-04-20] MEDS: methylPREDNISolone sod succ 125mg/2ml vial IV SCH ×3 (13:14→17:56)
[2022-04-20] MEDS ORDERED: LIDOCAINE 4% (40MG/ML) topical solution 50ml **BRONCH ONLY ONE (14:40)
[2022-04-20] MEDS ORDERED: phenylephrine 1% Nasal spray (extra-strength) 15 ML bottle **bronch room NS ONE (14:40)
[2022-04-20] MEDS ORDERED: lidocaine 2% viscous 15 ML cup ***bronch room only MM ONE (14:40)
--- NOTE | 2022-04-20 16:28 | NUR ---
PER CONVERSATION WITH SON. HE REPORTS THAT HIS SISTER AND MOM ARE ON GOOD TERMS
[2022-04-20] MEDS: dextrose 5%-water 1,000 ML IV SCH ×2 (18:25→22:32)
--- NOTE | 2022-04-20 18:41 | NUR ---
Problems reprioritized. Patient report given, questions answered & plan of care reviewed with MANDO MYERS, AND MANDO AVELAR.
--- NOTE | 2022-04-20 18:54 | NUR ---
Patient in room CICU 2009. I have received report from Teagan GILMORE and had the opportunity to ask questions and assume patient care.
[2022-04-21] VITALS (10 sets, daily range): BP systolic 94–111; BP diastolic 53–66
--- NOTE | 2022-04-21 01:30 | NUR ---
notified of low urine output, bladder tenderness, and bladder scan of 500cc+. Fang placed f/725mls. Urine noted to be mod. cloudy.
[2022-04-21 02:06] LABS: BASOPHILS # (AUTO) 0.2 X10'3 (0-0.2); BASOPHILS % (AUTO) 0.9 % (0-1); EOSINOPHILS % (AUTO) 0 % (0-6); HEMATOCRIT 37.9 % (35.0-45.0); HEMOGLOBIN 12.8 g/dl (12.0-16.0); LYMPHOCYTES # (AUTO) 0.9 X10'3 (1.1-4.8); LYMPHOCYTES % (AUTO) 4.4 % (21-51); MEAN CORPUSCULAR HEMOGLOBIN 30.4 PG (27.0-31.0); MEAN CORPUSCULAR HGB CONC 33.8 g/dL (33.0-36.5); MEAN PLATELET VOLUME 8.8 FL (7.4-10.4); MONOCYTES # (AUTO) 0.4 X10'3 (0-0.9); MONOCYTES % (AUTO) 1.8 % (2-12); NEUTROPHILS # (AUTO) 19.3 X10'3 (1.8-7.7); NEUTROPHILS % (AUTO) 92.9 % (42-75); PLATELET COUNT 294 X10'3 (140-440); RED BLOOD COUNT 4.21 X10'6 (4.20-5.60); RED CELL DISTRIBUTION WIDTH 13.2 % (11.5-14.5); WHITE BLOOD COUNT 20.8 X10'3 (4.5-11.0)
[2022-04-21 02:36] LABS: ALANINE AMINOTRANSFERASE 14 U/L (12-78); ALBUMIN 3.1 G/DL (3.4-5.0); ALBUMIN/GLOBULIN RATIO 0.8 (1.1-1.5); ALKALINE PHOSPHATASE 64 IU/L (46-116); ANION GAP 14 (8-16); ASPARTATE AMINO TRANSFERASE 10 U/L (10-37); BILIRUBIN,TOTAL 0.3 MG/DL (0.1-1.0); BLOOD UREA NITROGEN 21 MG/DL (7-18); BUN/CREATININE RATIO 20.6 (6.6-38.0); CALCIUM 8.8 MG/DL (8.5-10.1); CHLORIDE 107 MMOL/L (99-107); CREATININE 1.02 MG/DL (0.40-0.90); GLUCOSE 181 MG/DL (70-104); POTASSIUM 3.8 MMOL/L (3.5-5.1); SODIUM 141 MMOL/L (135-145); TOTAL CARBON DIOXIDE 19.7 MMOL/L (24-32); eGFR 58 ML/MIN
[2022-04-21] MEDS: dextrose 5%-water 1,000 ML IV SCH ×4 (04:25→23:41)
--- NOTE | 2022-04-21 04:30 | NUR ---
Doctor rounds and review, notified of elevated WBC this am.
--- NOTE | 2022-04-21 05:30 | NUR ---
Problems reprioritized. Patient report given, questions answered & plan of care reviewed with Breonna ED TRANSPORTER. Pt. transferred to PCU via bed w/o incident. Tele unit applied.
--- NOTE | 2022-04-21 06:40 | NUR ---
Problems reprioritized. Patient report given, questions answered & plan of care reviewed with Lanie GILMORE.
[2022-04-21] MEDS: K and/or MAG REPLACEMENT MC SCH (08:00)
[2022-04-21] MEDS: lansoprazole 15mg solutab OGT SCH (09:49)
[2022-04-21] MEDS: enoxaparin 40mg/0.4ml syringe SUBCUT SCH (09:50)
[2022-04-21] MEDS: CefTRIAXone 2gm/NS 100ml IVPB 100 ML IV SCH (09:53)
--- NOTE | 2022-04-21 12:00 | NUR ---
Fang Catheter is discontinued Pt. is voiding clear braxton.
--- NOTE | 2022-04-21 14:00 | NUR ---
Message to MD currently is eating and drinking. Nursing requesting IV 5% dextrose order to be evaluated by the physician.
--- NOTE | 2022-04-21 23:17 | NUR ---
patient encouraged to void, d/t having souza removed earlier today and had not voided during second shift supervisor yet. Patient voided 100 in toilet, bladder scan for 10.
[2022-04-22 02:00] VITALS: BP 98/58
[2022-04-22 06:10] LABS: BASOPHILS % (AUTO) 0.2 % (0-1); EOSINOPHILS # (AUTO) 0.1 X10'3 (0-0.9); EOSINOPHILS % (AUTO) 0.7 % (0-6); HEMATOCRIT 34.7 % (35.0-45.0); HEMOGLOBIN 11.7 g/dl (12.0-16.0); LYMPHOCYTES # (AUTO) 2.8 X10'3 (1.1-4.8); LYMPHOCYTES % (AUTO) 26.1 % (21-51); MEAN CORPUSCULAR HEMOGLOBIN 30.3 PG (27.0-31.0); MEAN CORPUSCULAR HGB CONC 33.8 g/dL (33.0-36.5); MEAN CORPUSCULAR VOLUME 89.7 FL (78-98); MEAN PLATELET VOLUME 8.8 FL (7.4-10.4); MONOCYTES # (AUTO) 0.7 X10'3 (0-0.9); MONOCYTES % (AUTO) 6.2 % (2-12); NEUTROPHILS # (AUTO) 7.1 X10'3 (1.8-7.7); NEUTROPHILS % (AUTO) 66.8 % (42-75); PLATELET COUNT 266 X10'3 (140-440); RED BLOOD COUNT 3.87 X10'6 (4.20-5.60); RED CELL DISTRIBUTION WIDTH 13.4 % (11.5-14.5); WHITE BLOOD COUNT 10.7 X10'3 (4.5-11.0)
[2022-04-22 06:28] LABS: ALANINE AMINOTRANSFERASE 18 U/L (12-78); ALBUMIN 2.7 G/DL (3.4-5.0); ALBUMIN/GLOBULIN RATIO 0.8 (1.1-1.5); ALKALINE PHOSPHATASE 56 IU/L (46-116); ANION GAP 10 (8-16); ASPARTATE AMINO TRANSFERASE 14 U/L (10-37); BILIRUBIN,TOTAL 0.2 MG/DL (0.1-1.0); BLOOD UREA NITROGEN 25 MG/DL (7-18); BUN/CREATININE RATIO 32.1 (6.6-38.0); CALCIUM 8.3 MG/DL (8.5-10.1); CHLORIDE 107 MMOL/L (99-107); CREATININE 0.78 MG/DL (0.40-0.90); GLUCOSE 95 MG/DL (70-104); MAGNESIUM 1.8 MG/DL (1.5-2.4); POTASSIUM 3.6 MMOL/L (3.5-5.1); SODIUM 140 MMOL/L (135-145); eGFR 78 ML/MIN
[2022-04-22 07:00] VITALS: BP 100/62
[2022-04-22] MEDS: K and/or MAG REPLACEMENT MC SCH (07:44)
[2022-04-22] MEDS: CefTRIAXone 2gm/NS 100ml IVPB 100 ML IV SCH (09:21)
[2022-04-22] MEDS: lansoprazole 15mg solutab OGT SCH (09:22)
[2022-04-22] MEDS: enoxaparin 40mg/0.4ml syringe SUBCUT SCH (09:22)
--- NOTE | 2022-04-22 09:29 | NUR ---
Reassessment; Pt extubated 04/19 and was placed on Heart Healthy diet, has consumed mostly 100% of meals since then, meeting est nutrient needs at this time, though recommend liberalizing to Regular diet given no cardiac hx in EMR. LBM 04/21. No nutrition intervention implemented at this time, will continue to monitor. Recs: 1. Liberalize to REGULAR DIET given no cardiac hx in EMR 2. Bowel care per rx 3. Weekly wts Addendum: 04/22/22 at [address] Amended: Links added.
[2022-04-22] MEDS: dextrose 5%-water 1,000 ML IV SCH ×2 (10:25→18:52)
--- NOTE | 2022-04-22 10:51 | NUR ---
PAGER ID: [phone] MESSAGE: MIESHA ON [email or web address], CAN YOU PLEASE RENEW THE [phone] HOLD ON [id number] TODAY. THANK YOU
[2022-04-22 11:00] VITALS: BP 111/64
--- NOTE | 2022-04-22 12:27 | NUR ---
manager social services paged to let them know [id number] order is in for patient.
[2022-04-22 15:00] VITALS: BP 147/77
--- NOTE | 2022-04-22 15:00 | NUR ---
[facility] called and said they received the packet for patient, but there was no medical clearance info in the packet, and no copy of the 1799. senior director creative services paged
[2022-04-22] MEDS: levoFLOXACIN 500mg tablet PO SCH (16:06)
[2022-04-22 18:00] VITALS: BP 118/59
--- NOTE | 2022-04-22 18:13 | NUR ---
Called Dr Poon to let her know the medical hold for patient had been released. She said she isnt comfortable discharging patient until she speaks with social media intern. I called patients daughter to let her know, and she said it actually works better for patient to be discharged tomorrow instead. I paged social media intern to let them know. Put copy of Mr Mccauley's report in patients chart for review.
[2022-04-22 22:00] VITALS: BP 128/79
[2022-04-23 02:00] VITALS: BP 106/57
--- NOTE | 2022-04-23 06:12 | NUR ---
Problems reprioritized. Patient report given, questions answered & plan of care reviewed with MANDO Pulido.
[2022-04-23] MEDS: dextrose 5%-water 1,000 ML IV SCH (06:25)
[2022-04-23 07:00] VITALS: BP 100/62
[2022-04-23 07:20] LABS: BASOPHILS % (AUTO) 0.4 % (0-1); EOSINOPHILS # (AUTO) 0.2 X10'3 (0-0.9); EOSINOPHILS % (AUTO) 3.1 % (0-6); HEMATOCRIT 38.1 % (35.0-45.0); HEMOGLOBIN 12.8 g/dl (12.0-16.0); LYMPHOCYTES # (AUTO) 2.1 X10'3 (1.1-4.8); LYMPHOCYTES % (AUTO) 29.2 % (21-51); MEAN CORPUSCULAR HGB CONC 33.6 g/dL (33.0-36.5); MEAN CORPUSCULAR VOLUME 89.3 FL (78-98); MEAN PLATELET VOLUME 8.5 FL (7.4-10.4); MONOCYTES # (AUTO) 0.6 X10'3 (0-0.9); MONOCYTES % (AUTO) 8.5 % (2-12); NEUTROPHILS # (AUTO) 4.3 X10'3 (1.8-7.7); NEUTROPHILS % (AUTO) 58.8 % (42-75); PLATELET COUNT 275 X10'3 (140-440); RED BLOOD COUNT 4.26 X10'6 (4.20-5.60); WHITE BLOOD COUNT 7.3 X10'3 (4.5-11.0)
[2022-04-23] MEDS: K and/or MAG REPLACEMENT MC SCH (08:00)
[2022-04-23 08:01] LABS: ALANINE AMINOTRANSFERASE 18 U/L (12-78); ALBUMIN 2.8 G/DL (3.4-5.0); ALBUMIN/GLOBULIN RATIO 0.8 (1.1-1.5); ALKALINE PHOSPHATASE 63 IU/L (46-116); ANION GAP 10 (8-16); ASPARTATE AMINO TRANSFERASE 12 U/L (10-37); BILIRUBIN,TOTAL 0.4 MG/DL (0.1-1.0); BLOOD UREA NITROGEN 11 MG/DL (7-18); BUN/CREATININE RATIO 15.7 (6.6-38.0); CALCIUM 8.5 MG/DL (8.5-10.1); CHLORIDE 107 MMOL/L (99-107); GLUCOSE 94 MG/DL (70-104); MAGNESIUM 1.9 MG/DL (1.5-2.4); POTASSIUM 3.9 MMOL/L (3.5-5.1); SODIUM 141 MMOL/L (135-145); TOTAL CARBON DIOXIDE 24.3 MMOL/L (24-32); TOTAL PROTEIN 6.4 G/DL (6.4-8.2); eGFR 89 ML/MIN
[2022-04-23] MEDS: enoxaparin 40mg/0.4ml syringe SUBCUT SCH (09:24)
[2022-04-23] MEDS: lansoprazole 15mg solutab OGT SCH (09:24)
[2022-04-23 11:00] VITALS: BP 124/70
[2022-04-23] MEDS: levoFLOXACIN 500mg tablet PO SCH (11:00)
--- NOTE | 2022-04-23 11:00 | NUR ---
Patient discharge orders put in this morning. Went through paperwork with patient, just waiting for her daughter to come pick her up.
--- NOTE | 2022-04-23 14:33 | NUR ---
Discharge paperwork reviewed and questions answered. IV removed from right forearm. catheter intact. Patient wheeled down to lobby and left facility with daughter. Patient stable upon leaving [facility]. Addendum: 04/23/22 at 1534 by Magdalena Titus RN Discharged @ [id number]
[2022-04-30 08:01] LABS: GASTRIC OCCULT BLOOD POSITIVE (Neg)
== END 2022-04-23 14:18 | disposition home or self-care (01) | DRG 817 ==
LOC: ER 14:52 → ED HOLD 18:25 → CICU 2S 21:25 → PCU 3S 04-21 05:53
PROVIDERS: ADMIT Hospitalist; ATTEND Hospitalist
PROC: 5A1945Z Respiratory Ventilation, 24-96 Consecutive Hours (ICD-10-PCS; 2022-04-18)
PROC: 0BH17EZ Insertion of Endotracheal Airway into Trachea, Via Natural or Artificial Opening (ICD-10-PCS; 2022-04-18)
PROC: 02HV33Z Insertion of Infusion Device into Superior Vena Cava, Percutaneous Approach (ICD-10-PCS; 2022-04-18)
PROC: 0DB98ZX Excision of Duodenum, Via Natural or Artificial Opening Endoscopic, Diagnostic (ICD-10-PCS; principal; 2022-04-19)
PROC: 0DB68ZX Excision of Stomach, Via Natural or Artificial Opening Endoscopic, Diagnostic (ICD-10-PCS; 2022-04-19)
PROC: 0C9M8ZZ Drainage of Pharynx, Via Natural or Artificial Opening Endoscopic (ICD-10-PCS; 2022-04-20)
PROC: 02HV33Z Insertion of Infusion Device into Superior Vena Cava, Percutaneous Approach (ICD-10-PCS; 2022-04-22)
PROC: 5A2204Z Restoration of Cardiac Rhythm, Single (ICD-10-PCS; 2022-04-22)
DX: T42.6X2A Poisoning by other antiepileptic and sedative-hypnotic drugs, intentional self-harm, initial encounter (principal); R57.0 Cardiogenic shock; J96.00 Acute respiratory failure, unspecified whether with hypoxia or hypercapnia; G92.8 Other toxic encephalopathy; K92.0 Hematemesis; D63.8 Anemia in other chronic diseases classified elsewhere; K21.00 Gastro-esophageal reflux disease with esophagitis, without bleeding; F20.9 Schizophrenia, unspecified; F41.9 Anxiety disorder, unspecified; F32.A Depression, unspecified; I48.91 Unspecified atrial fibrillation; F15.90 Other stimulant use, unspecified, uncomplicated; Z91.51 Personal history of suicidal behavior; Y92.89 Other specified places as the place of occurrence of the external cause
CPT/HCPCS: 31500; 31628; 36415; 36556; 36600; 43239; 70450; 71045; 80048; 80053; 80305; 80320; 80329; 81001; 81025; 82271; 82550; 82728; 82803; 82810; 82948; 83540; 83550; 83605; 83735; 84100; 84145; 84443; 84484; 85018; 85025; 85045; 85610; 86885; 86900; 86901; 87040; 87070; 87077; 87081; 87186; 94002; 94003; 94760; 94799; 96365; 96366; 96368; 96375; 97116; 97161; 97530; 99152; 99285; C9113; G0378; J0610; J0696; J0706; J1120; J1650; J2250; J2930; J3010; J3475; J3480; J3490; J7030; J7060; J7070; J7120; P9045

== ENCOUNTER 2024-09-21 08:02 | Emergency (ER) | payer MEDICAID ==
[~2024-09-21] VITALS: Ht 154.9 cm; Wt 99.7 kg
[~2024-09-21 08:02] MED LIST changes: +ATOR10TA70 PO; +BENZ1TAB PO; -BENZ1TAB90 PO; +BUSP10TA3 PO; +CLON-368 PO; +FURO20TA4 PO; +POTA-218 PO; +VALB40CA2 PO; -rocuronium 10mg/ml inj IV ONE
[2024-09-21 08:12] VITALS: BP 164/94; PULSE 103; RESP 18; O2SAT 93
[2024-09-21] MEDS ORDERED: CEPH-585 PO (09:38)
[2024-09-21] MEDS ORDERED: DIPH25CA83 PO (09:38)
[2024-09-21] MEDS ORDERED: IBUP-862 PO (09:38)
[2024-09-21] MEDS ORDERED: SULF1TAB49 PO (09:38)
[2024-09-21] MEDS ORDERED: CHLO118L3 TOP (09:38)
[2024-09-21 09:44] VITALS: TEMP 97.8
== END 2024-09-21 09:46 | disposition home or self-care (01) ==
LOC: ER 08:03
DX: L98.498 Non-pressure chronic ulcer of skin of other sites with other specified severity (principal); F20.9 Schizophrenia, unspecified; F15.90 Other stimulant use, unspecified, uncomplicated; Z79.899 Other long term (current) drug therapy
CPT/HCPCS: 99283

== ENCOUNTER 2024-11-19 14:06 | Emergency (ER) | payer MEDICAID ==
[~2024-11-19] VITALS: Ht 154.9 cm; Wt 96.6 kg
[~2024-11-19 14:06] MED LIST changes: -BENZ1TAB PO; +CHLO118L3 TOP; +COG1T PO; +DIPH25CA83 PO; +IBUP-862 PO
[2024-11-19 14:43] VITALS: BP 166/89; PULSE 73; RESP 18; TEMP 98.8; O2SAT 94
[2024-11-19] MEDS ORDERED: DIPH25CA83 PO (17:04)
[2024-11-19] MEDS ORDERED: CHLO118L TOP (17:04)
[2024-11-19] MEDS ORDERED: IBUP-1984 PO (17:04)
[2024-11-19] MEDS ORDERED: CLIN300C54 PO (17:04)
[2024-11-19] MEDS ORDERED: MUPI30OI5 TOP (17:04)
== END 2024-11-19 17:11 | disposition home or self-care (01) ==
LOC: ER 14:07
DX: L01.00 Impetigo, unspecified (principal); F20.9 Schizophrenia, unspecified; F15.90 Other stimulant use, unspecified, uncomplicated
CPT/HCPCS: 99283

== ENCOUNTER 2025-05-02 16:40 | Emergency (ER) | payer MEDICAID ==
[~2025-05-02] VITALS: Ht 165.1 cm; Wt 91.9 kg
[~2025-05-02 16:40] MED LIST changes: +CHLO118L TOP; +MUPI30OI5 TOP
--- NOTE | 2025-05-02 21:48 | Physician Documentation ---
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 Patient reports her this is symptoms are improving however she is concerned about the lightheadedness when changing positions. Patient reports no other acute symptoms or concerns including no subjective fever. History as above. Also having problems with her legs and bladder control with diarrhea and feels like fluid is inside her head being shifted around to her lower body Medication Reconciliation Allergies: Coded Allergies: No Known Allergies (Unverified , 11/19/24) Scheduled Atorvastatin Calcium (Atorvastatin Calcium), 1 TAB PO DAILY, (Reported) Benztropine Mesylate (Benztropine Mesylate), 1 MG PO BID Buspirone HCl (Buspirone HCl), 1 TAB PO BID, (Reported) Buspirone Hcl (Buspirone Hcl), 10 MG PO BID Chlorhexidine Gluconate (Chlorhexidine Gluconate), 1 APPLIC TOP DAILY Chlorhexidine Gluconate (Hibiclens), 1 EA TOP DAILY Cholecalciferol (Vitamin D3) (Vitamin D3), 1 CAP PO DAILY, (Reported) Clonazepam (Clonazepam), 1 TAB PO BID, (Reported) Diphenhydramine HCl (Benadryl), 1-2 CAP PO HS Diphenhydramine Hcl (Benadryl), 2 CAP PO HS Escitalopram Oxalate* (Lexapro*), 5 MG PO DAILY Furosemide (Furosemide), 1 TAB PO DAILY, (Reported) Ibuprofen (Ibu), 1 TAB PO Q6H Lorazepam* (Ativan*), 1 TABLET PO HS, (Reported) Mupirocin/Lidocaine (Nanran 2%-2% Ointment), 1 APPLIC TOP Q8H Nicotine 21 MG Patch* (Habitrol 21 MG Patch*), 1 PATCH TD DAILY [place]-3 Fatty Acids (Fish Oil), 1 CAP PO DAILY, (Reported) Paliperidone (Paliperidone ER), 3 MG PO HS Potassium Chloride (K-Tab ER), 1 MEQ PO BIDWM, (Reported) Valbenazine Tosylate (Ingrezza), 1 CAP PO QAM, (Reported) Past Medical History Past Medical History: Schizophrenia Drug Use: methamphetamine Review of Systems ROS All review of systems negative except as per HPI Physical Exam Physical Exam Vital Signs: Temperature: 98.5, Source: Temporal, Heart Rate: 102, Respiratory Rate: 20, BP: 128/62, Pulse Oximetry: 98, Weight: 91.900 Physical Exam General: Patient is awake, alert, cooperative, paranoid. Head: Normocephalic and atraumatic. Multiple ulcers of different time healing patterns noted in scalp Eyes: Conjunctival normal. EOMI. PERRL. ENT: Mucous membranes moist. Neck: Supple, trachea is midline. Chest: Clear to auscultation bilaterally without rales, rhonchi, or wheezes. There is no accessory muscle use or retractions. Cardiac: RRR without murmurs, gallops, or rubs. Extremities: Normal strength. Normal range of motion. No deformities or edema. Neuro: Cranial nerves II-XII grossly intact. No focal neuro deficits. Patient ambulating without difficulty. Progress Progress Note We are able to get records from [facility]. Patient was seen April 06 for reoccurring headaches with a negative CT scan at that time as well as on April 11 with a bilateral mammogram that was negative. Last time treated for her skin wounds was for tonight a capitis with anti fungal on March 29. Results/Orders Results/Orders Completed Orders - FAHEEM SIDHU MD Cbc/Diff (05/03/25 01:34) BMP (05/03/25 01:34) Procalcitonin (05/03/25 01:34) Ibuprofen Tablet (Motrin Tablet) (05/03/25 03:05) Medications Received in ER Medications (Trade) Dose Ordered Sig/Traci Route PRN Reason Start Time Stop Time Status Last Admin Dose Admin (Motrin tablet) 400 mg ONCE ONCE PO 05/03/25 03:05 05/03/25 03:06 DC 05/03/25 03:23 400 MG Vital Signs 05/02/25 05/02/25 05/02/25 17:22 23:45 23:47 Temp 98.5 Pulse 102 79 Resp 20 18 18 B/P (MAP) 128/62 118/68 (85) Pulse Ox 98 97 Laboratory Tests Test 05/03/25 01:44 White Blood Count 14.6 H Red Blood Count 4.43 Hemoglobin 13.6 Hematocrit 40.4 Mean Corpuscular Volume 91.1 Mean Corpuscular Hemoglobin 30.8 Mean Corpuscular Hemoglobin Concent 33.8 Red Cell Distribution Width 15.0 H Platelet Count 273 Mean Platelet Volume 7.3 L Neutrophils (%) (Auto) 74.6 Lymphocytes (%) (Auto) 16.4 L Monocytes (%) (Auto) 6.1 Eosinophils (%) (Auto) 2.4 Basophils (%) (Auto) 0.5 Neutrophils # (Auto) 10.9 H Lymphocytes # (Auto) 2.4 Monocytes # (Auto) 0.9 Eosinophils # (Auto) 0.3 Basophils # (Auto) 0.1 CBC Comment Sodium Level 138 Potassium Level 4.1 Chloride Level 103 Carbon Dioxide Level 27.8 Anion Gap 7 L Blood Urea Nitrogen 11 Creatinine 0.90 Estimated GFR/1.73 m2 66 BUN/Creatinine Ratio 12.2 Glucose Level 87 Calcium Level 8.3 L Albumin 3.0 L Procalcitonin < 0.05 Chemistry Comments Medical Decision Making Findings MSE performed in triage and patient returned to ED lobby by nursing staff Departure Disposition: HOME / SELF CARE / HOMELESS Impression: Primary Impression: Multiple wounds of skin Condition: Stable Discharge Instructions: Wound Care, Adult Additional Instructions: Consult with your doctor about dermatologic referral. Referrals: NO PRIMARY CARE PROVIDER (PCP) Education Educated: Patient Educated regarding: need for follow up Signature Scribe Signature: No scribe Attestation: The note accurately reflects work and decisions made by me.Faheem Sidhu MD 05/03/25 03:02 [place] May 02, 2025 21:48 FAHEEM SIDHU MD May 03, 2025 00:30
[2025-05-03 02:00] LABS: ANION GAP 7 (8-16); BASOPHILS # (AUTO) 0.1 X10'3 (0-0.2); BASOPHILS % (AUTO) 0.5 % (0-1); BLOOD UREA NITROGEN 11 MG/DL (7-18); BUN/CREATININE RATIO 12.2 (10.0-20.0); CALCIUM 8.3 MG/DL (8.5-10.1); CHLORIDE 103 MMOL/L (99-107); EOSINOPHILS # (AUTO) 0.3 X10'3 (0-0.9); EOSINOPHILS % (AUTO) 2.4 % (0-6); GLUCOSE 87 MG/DL (70-104); HEMATOCRIT 40.4 % (35.0-45.0); HEMOGLOBIN 13.6 g/dl (12.0-16.0); LYMPHOCYTES # (AUTO) 2.4 X10'3 (1.1-4.8); LYMPHOCYTES % (AUTO) 16.4 % (21-51); MEAN CORPUSCULAR HEMOGLOBIN 30.8 PG (27.0-31.0); MEAN CORPUSCULAR HGB CONC 33.8 g/dL (33.0-36.5); MEAN CORPUSCULAR VOLUME 91.1 FL (78-98); MEAN PLATELET VOLUME 7.3 FL (7.4-10.4); MONOCYTES # (AUTO) 0.9 X10'3 (0-0.9); MONOCYTES % (AUTO) 6.1 % (2-12); NEUTROPHILS # (AUTO) 10.9 X10'3 (1.8-7.7); NEUTROPHILS % (AUTO) 74.6 % (42-75); PLATELET COUNT 273 X10'3 (140-440); POTASSIUM 4.1 MMOL/L (3.5-5.1); RED BLOOD COUNT 4.43 X10'6 (4.20-5.60); SODIUM 138 MMOL/L (135-145); TOTAL CARBON DIOXIDE 27.8 MMOL/L (24-32); WHITE BLOOD COUNT 14.6 X10'3 (4.5-11.0); eCRCL 66 ML/MIN; eGFR 66 ML/MIN
[2025-05-03] MEDS: ibuprofen tablet 400 MG TABLET PO ONE (03:23)
[2025-05-03 04:15] VITALS: BP 100/87; PULSE 87; RESP 16; TEMP 98.5; O2SAT 100
== END 2025-05-03 04:30 | disposition home or self-care (01) ==
LOC: ER 16:41
DX: R42 Dizziness and giddiness (principal); R19.7 Diarrhea, unspecified; F20.9 Schizophrenia, unspecified; Z79.899 Other long term (current) drug therapy
CPT/HCPCS: 36415; 80048; 84145; 85025; 99284

== ENCOUNTER 2025-09-02 08:22 | Outpatient (CLI) | payer MEDICAID ==
--- NOTE | 2025-09-02 11:55 | RADIOLOGY REPORT ---
PROCEDURE: MRI lumbar spine without contrast. INDICATION: SCIATICA, RIGHT SIDE COMPARISON: None. TECHNIQUE: MRI lumbar spine without intravenous contrast utilizing multiplanar, multisequence technique. FINDINGS: The alignment of the lumbar spine vertebral bodies is preserved. There are Modic type 2 endplate changes at L4-L5. There are Modic type 1 endplate changes at L3- L4. The vertebral body heights are maintained. There is intervertebral disc space narrowing at L1-L2 through L5-S1 with diminished T2 signal intensity. The conus medullaris is normal in signal characteristics and terminates at the T12- L1 level. Paraspinal muscles are unremarkable. At the T12-L1 level, there is no evidence of central spinal canal or neuroforaminal stenosis. At the L1-L2 level, there is broad-based posterior disc bulge causing moderate spinal stenosis. There is mild bilateral neural foraminal stenosis. At the L2-L3 level, there is broad-based posterior disc bulge causing mild spinal stenosis. There is mild bilateral neural foraminal stenosis. At the L3-L4 level, there is broad-based posterior disc bulge, ligamentum flavum thickening and facet hypertrophy. There is moderate spinal stenosis. There is moderate right and mild left neural foraminal stenosis. At the L4-L5 level, there is posterior central disc protrusion which causes severe spinal stenosis. There is moderate right and mild left neural foraminal stenosis. At the L5-S1 level, there is no evidence of central spinal canal or neuroforaminal stenosis. There is bilateral facet arthropathy. Other: None. IMPRESSION: 1. Multilevel degenerative changes in the lumbar spine. This includes severe spinal stenosis at L4-L5 due to posterior central disc protrusion. There is moderate right neural foraminal stenosis at L4-L5. 2. Moderate right and mild left neural foraminal stenosis is present at L3-L4.
== END 2025-09-02 23:59 | disposition home or self-care (01) ==
LOC: MRI02 08:22
PROVIDERS: ATTEND Nurse Practitioner
DX: M51.16 Intervertebral disc disorders with radiculopathy, lumbar region (principal); M47.27 Other spondylosis with radiculopathy, lumbosacral region; M48.07 Spinal stenosis, lumbosacral region
CPT/HCPCS: 72148

== ENCOUNTER 2025-10-20 09:32 | Emergency (ER) | payer MEDICAID | END 2025-10-20 10:56 | disposition left against medical advice (07) | LOC: ER 09:33 | DX: R53.1 Weakness (principal); Z53.21 Procedure and treatment not carried out due to patient leaving prior to being seen by health care provider | CPT/HCPCS: 99281 ==